=== PATIENT | male | born 1965 | race Caucasian/White ===

== ENCOUNTER 2018-09-08 12:20 | Emergency (ER) | payer OTHER ==
[2018-09-08] MEDS ORDERED: Sodium Chloride 0.9% 1,000 ML IV ONE (12:35)
[2018-09-08] MEDS ORDERED: Morphine Sulfate 2 mg/mL 1mL Syr IVP ONE (12:35)
[2018-09-08] MEDS ORDERED: Morphine Sulfate 2 mg/mL 1mL Syr ONE (12:42)
[2018-09-08] MEDS ORDERED: Midazolam 1mg/ml 2 ml vial IV STA (13:26)
[2018-09-08] MEDS ORDERED: Midazolam 1mg/ml 2 ml vial IV ONE (13:30)
--- NOTE | 2018-09-08 17:07 | ED Physician Chart ---
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 Pain, A/N/V/D/C, fever, chills, bleeding, flank pain, back pain, hip pain, or urinary s/s; pt's last tetanus shot: < 5 years; UTD Allergies:: Allergies Allergy/AdvReac Type Severity Reaction Status Date / Time No Known Allergies Allergy Verified 09/08/18 12:33 Vitals:: Vital Signs - 8 hr 09/08/18 09/08/18 09/08/18 12:33 14:00 15:08 Temp 98.3 F HR 80 81 73 RR 26 16 11 BP 153/96 134/78 124/68 O2 Sat % 98 98 100 09/08/18 15:16 Temp 98.5 F HR 76 RR 15 BP 124/68 O2 Sat % 100 Historian:: Patient, Family Member Review:: Nurse's Note Reviewed, Old Chart Reviewed ED Review of Systems - Review of Systems General/Constitutional: No fever, No chills, No weight loss, No weakness, No diaphoresis, No edema, No loss of appetite Skin: No skin lesions, No rash, No bruising Head: No headache, No light-headedness Eyes: No loss of vision, No pain, No diplopia ENT: No earache, No nasal drainage, No sore throat, No tinnitus Neck: No neck pain, No swelling, No thyromegaly, No stiffness, No mass noted Cardio Vascular: No chest pain, No palpitations, No PND, No orthopnea, No edema Pulmonary: No SOB, No cough, No sputum, No wheezing GI: No nausea, No vomiting, No diarrhea, No pain, No melena, No hematochezia, No constipation, No hematemesis G/U: No dysuria, No frequency, No hematuria, No nacturia Musculoskeletal: No bone or joint pain, No back pain, No muscle pain Endocrine: No polyuria, No polydipsia Psychiatric: No prior psych history, No depression, No anxiety, No suicidal ideation, No homicidal ideation, No auditory hallucination, No visual hallucination Hematopoietic: No bruising, No lymphadenopathy Allergic/Immuno: No urticaria, No angioedema Neurological: No syncope, No focal symptoms, No weakness, No paresthesia, No headache, No seizure, No dizziness, No confusion, No vertigo ED Past Medical History - Past Medical History Obtainable: Yes Past Medical History: HTN Family History: HTN Social History: Non Smoker, No Alcohol, No Drug Use, Single, Employed Surgical History: None Psychiatricy History: None Medication: Reviewed Family Medical History - Family Member Mother History Unknown: Yes ED Physical Exam - Physical Examination General/Constitutional: Awake, Well-developed, well-nourished, Alert, No distress, GCS 15, Non-toxic appearing, Ambulatory Head: Atraumatic Eyes: Lids, conjuctiva normal, PERRL, EOMI Other Eyes comments:: PERRLA; Fundi: benign; EOMs: WNL Skin: Nl inspection, No rash, No skin lesions, No ecchymosis, Well hydrated, No lymphadenopathy ENMT: External ears, nose nl, TM canals nl, Nasal exam nl, Lips, teeth, gums nl , Oropharynx nl, Tonsils nl Other ENMT comments:: TMJs: WNL Neck: Nontender, Full ROM w/o pain, No JVD, No nuchal rigidity, No bruit, No mass, No stridor Other Neck comments:: Supple; no cervical tenderness; no meningeal signs; no bruits Respiratory: Nl effort/Exclusion, Clear to Auscultation, No Wheeze/Rhonchi/Rales Cardio Vascular: RRR, No murmur, gallop, rubs, NL S1 S2, Carotid/Femoral/Distal pulses equal bilaterally GI: No tenderness/rebounding/guarding, No organomegaly, No hernia, Normal BS's, Nondistended, No mass/bruits, No McBurney tenderness, Rectum exam nl Other GI comments:: no pulsatile masses : No CVA tenderness Extremities: No tenderness or effusion, Full ROM, normal strength in all extremities, No edema, Normal digits & nails Other Extremities comments:: + Right Shoulder Deformity and Tenderness with limited ROMs; good NV functions Neuro/Psych: Alert/oriented, DTR's symmetric, Normal sensory exam, Normal motor strength, Judgement/insight normal, Mood normal, Normal gait, No focal deficits Other Neuro/Psych comments:: no focal signs Misc: Normal back, No paraspinal tenderness ED Labs/Radiology/EKG Results - Radiology Results Comments:: + Right Humerus Anterior/Inferior Dislocation of the Right Shoulder Joint; Post- Reduction X-Rays: Good Position of the Right Shoulder Joint ED Assessment - Procedures Procedures:: Reduction of the Right Shoulder Dislocation Informed Consent: Procedure/risk/benefits explained by MD: Yes Post Procedure/Splint Exam: No Active Bleeding, Full Range of Motion, Neuro/ Vascular Exam Comments:: The Right Shoulder Dislocation was successfully Reduced; Post-Reduction Exam: Full Active ROMs; no loss of ROMs; no deformities; no septic joints; no cellulitis; no ligament instability; good motor, tendon, and sensory functions; good NV functions; Post-Reduction X-Rays: Good Position of the Right Shoulder Joint ED Septic Shock - . Is Septic Shock (SBP<90, OR Lactate>4 mmol\L) present?: No - <6hrs of presentation: Vital Signs: Vital Signs - 8 hr 09/08/18 09/08/18 09/08/18 12:33 14:00 15:08 Temp 98.3 F HR 80 81 73 RR 26 16 11 BP 153/96 134/78 124/68 O2 Sat % 98 98 100 09/08/18 15:16 Temp 98.5 F HR 76 RR 15 BP 124/68 O2 Sat % 100 ED Reassessment (Disposition) - Reassessment Reassessment:: pt is asymptomatic upon discharge Reassessment Condition:: Improved - Diagnosis Diagnosis:: Right Shoulder Pain; Right Shoulder Dislocation; S/P Right Shoulder Reduction; Right Shoulder Sprains and Strains; Right Shoulder Injury; Sports Injury; Hypertension - Aftercare/Follow up Instructions Aftercare/Follow-Up Instructions:: Counseled pt regarding lab results/diagnosis & need follow up, Refer to Discharge Instructions, Counseled pt & family regarding lab results/diagnosis & need follow up - Patient Disposition Discharge/Transfer:: Home Condition at Disposition:: Stable, Improved (X-Rays Instructions; RTER prn if existing s/s reoccur and/or get worse and/or any other new s/s occur; ACIs given for all above Dx; Have Blood Pressure re-checked in one day; Refer to Orthopedist/Wiring Technician ELISEO; F/U with PMD in one day or prn; RTEr prn if concerned)
--- NOTE | 2018-09-09 08:57 | Diagnostic Imaging Report ---
Right shoulder 3 views Indication: Trauma Comparison: none Findings: There is anterior/inferior dislocation of the humeral head in relation to the glenoid. There may be a small Hill-Sachs lesion. Mild degenerative changes are noted. Mild surrounding soft tissue swelling is noted. Impression: Anterior/inferior right shoulder dislocation. There may be a small Hill-Sachs lesion.. In the setting of trauma, if clinical symptoms persist and there is continued concern for an occult fracture, follow up exams in 5-7 days is suggested.
--- NOTE | 2018-09-09 08:58 | Diagnostic Imaging Report ---
Right shoulder 2 views Indication: Post reduction Comparison: Right shoulder x-rays earlier the same day Findings: There has been reduction of the right glenohumeral joint with pentecostal of anatomic alignment. There is suggestion of a small Hill-Sachs lesion. Mild degenerative changes are noted. Impression: Interval reduction of the right glenohumeral joint with pentecostal of anatomic alignment. A small Hill-Sachs lesion is suspected.
== END 2018-09-08 15:25 | disposition home or self-care (01) ==
LOC: ER 12:20
DX: S43.004A Unspecified dislocation of right shoulder joint, initial encounter (principal); S43.401A Unspecified sprain of right shoulder joint, initial encounter; S46.911A Strain of unspecified muscle, fascia and tendon at shoulder and upper arm level, right arm, initial encounter; I10 Essential (primary) hypertension; X58.XXXA Exposure to other specified factors, initial encounter; Y93.23 Activity, snow (alpine) (downhill) skiing, snowboarding, sledding, tobogganing and snow tubing; Y92.89 Other specified places as the place of occurrence of the external cause; Y99.8 Other external cause status
CPT/HCPCS: 99284; 96374; 96375; 23650; 73030 ×2; 87081; J2270; J2250; J2405; 90799; J7030; Z7502